=== PATIENT | male | born 1945 | race Caucasian/White ===

== ENCOUNTER 2019-10-23 14:00 | Outpatient (RCR) | payer MEDICAID ==
[~2019-10-23 14:00] MED LIST: ASPI325T6 PO; ASPIRIN 81M81 MG/TA2 PO; DIOVAN 80MG80 MG PO; LIPITOR 40MG TA40 MG PO
== END 2019-11-11 | disposition still patient (30) ==
LOC: WSC
DX: M47.9 Spondylosis, unspecified (principal)

== ENCOUNTER 2020-01-28 10:45 | Emergency (ER) | payer MEDICAID ==
[~2020-01-28] VITALS: Ht 182.9 cm; Wt 80.9 kg
[2020-01-28 10:50] VITALS: TEMP 97.6
[2020-01-28 11:04] LABS: BASO # 0.1 (0.0-0.2); BASO % 0.7 % (0.0-2.0); EOS # 0.1 (0.0-0.7); EOS % 0.9 % (0-4.0); GRAN # 5.5 (1.4-6.5); GRAN % 67.7 % (42.2-75.2); HEMOGLOBIN 14.9 g/dl (13.5-18.0); LYMPH # 1.9 (1.2-3.4); LYMPH % 22.9 % (20.0-51.0); MEAN CELL VOLUME 90 fl (80.0-100.0); MEAN CORPUSCULAR HEMOGLOBIN 31 pg (27.0-31.0); MEAN CORPUSCULAR HGB CONC 34 g/dl (33.0-37.0); MEAN PLATELET VOLUME 9.5 fl (7.4-10.4); MONO # 0.6 (0.1-0.6); MONO % 7.6 % (1.7-9.3); PLATELET COUNT 183 K/mm3 (130-400); RED BLOOD COUNT 4.89 M/mm3 (4.20-5.60); REDCELL DISTRIBUTION WIDTH-CV 12.2 % (11.5-14.5)
[2020-01-28 11:15] LABS: ALANINE AMINOTRANSFERASE 18 U/L (4-49); ALBUMIN 4.4 gm/dL (3.5-5.0); ALKALINE PHOSPHATASE 62 U/L (50-136); ANION GAP 8 mmol/L (7-16); AST,SGOT 28 U/L (15-37); BLOOD UREA NITROGEN 17 mg/dL (9-20); CALCIUM 9.5 mg/dL (8.4-10.2); CARBON DIOXIDE 27 mmol/L (22-30); CHLORIDE 104 mmol/L (98-107); CREATININE, serum 1.09 (0.66-1.25); GLUCOSE 94 mg/dL (74-106); POTASSIUM 4.3 mmol/L (3.4-5.0); SODIUM 139 mmol/L (137-145); TOTAL PROTEIN 8.1 gm/dL (6.4-8.2)
[2020-01-28 11:27] LABS: TROPONIN-I < 0.012 ng/mL (0.000-0.035)
[2020-01-28 11:41] LABS: COLLECTION METHOD CLEAN CATCH
[2020-01-28] MEDS ORDERED: LIPITOR20 MG PO (11:52)
[2020-01-28] MEDS ORDERED: HCTZ12.5TAB PO (11:53)
[2020-01-28 11:55] LABS: MUCOUS Present /lpf; PH 6 (5-8); SQUAMOUS EPITHELIAL None Seen /hpf; URINE APPEARANCE Clear; URINE BACTERIA None Seen /hpf; URINE BILIRUBIN Negative (NEGATIVE); URINE BLOOD Negative (NEGATIVE); URINE COLOR Yellow; URINE GLUCOSE Negative (NEGATIVE); URINE KETONE Negative (NEGATIVE); URINE LEUKOCYTE ESTERASE Negative (NEGATIVE); URINE NITRATE Negative (NEGATIVE); URINE PROTEIN(semi-quant) Negative (NEGATIVE); URINE RBC 0-2 /hpf; URINE UROBILINOGEN Negative (NEGATIVE)
[2020-01-28 15:00] VITALS: BP 136/75; PULSE 56
[2020-01-28] MEDS ORDERED: ANTIVERT 25MG25 MG PO (15:01)
== END 2020-01-28 15:12 | disposition home or self-care (01) ==
LOC: COL.ER 10:45
PROVIDERS: Emergency Medicine
DX: H81.13 Benign paroxysmal vertigo, bilateral (principal); E78.5 Hyperlipidemia, unspecified; I10 Essential (primary) hypertension; Z79.82 Long term (current) use of aspirin
CPT/HCPCS: J7030